=== PATIENT | female | born 1995 | race Caucasian/White ===

== ENCOUNTER 2019-12-26 15:31 | Inpatient (IN) | payer OTHER ==
[~2019-12-26] VITALS: Ht 167.6 cm; Wt 83.9 kg
[2019-12-26] MEDS ORDERED: KYLE19.5 IU (15:43)
[2019-12-26] MEDS ORDERED: ZOLO25TA PO (15:44)
[2019-12-26] MEDS ORDERED: CHARCOAL ACTIVATED LIQUID 25 GM/120 ML BTL PO ONE (15:45)
[2019-12-26] MEDS ORDERED: NS 1,000 ML IV ONE (16:00)
[2019-12-26 16:15] LABS: BASO % 0.3 % (0.0-1.0); EOS # 0.1 10^3/uL (0.0-0.5); HEMATOCRIT 42.9 % (36.0-47.0); LYMPH # 2.3 10^3/uL (1.5-5.0); LYMPH % 29.9 % (24.0-44.0); MEAN CORPUSCULAR HEMOGLOBIN 26.5 pg (27.0-33.0); MEAN CORPUSCULAR HGB CONC 32.6 g/dl (32.0-36.5); MEAN CORPUSCULAR VOLUME 81.3 fl (80.0-96.0); MONO # 0.5 10^3/uL (0.0-0.8); MONO % 6.6 % (0.0-5.0); NEUTROPHILS # 4.8 10^3/uL (1.5-8.5); NEUTROPHILS % 62.1 % (36.0-66.0); PLATELET COUNT, AUTOMATED 312 10^3/uL (150-450); RED BLOOD COUNT 5.28 10^6/uL (4.00-5.40); WHITE BLOOD COUNT 7.8 10^3/uL (4.0-10.0)
[2019-12-26 16:28] LABS: HCG, SERUM QUALITATIVE NEGATIVE (NEGATIVE)
[2019-12-26 16:38] LABS: ACETAMINOPHEN LEVEL < 2.0 UG/ML (10.0-30.0); ALT/SGPT 40 U/L (12-78); BILIRUBIN,DIRECT 0.1 MG/DL (0.0-0.2); BILIRUBIN,TOTAL 0.4 MG/DL (0.2-1.0); BLOOD UREA NITROGEN 11 MG/DL (7-18); CALCIUM LEVEL 9.5 MG/DL (8.5-10.1); CARBON DIOXIDE LEVEL 25 MEQ/L (21-32); CHLORIDE LEVEL 107 MEQ/L (98-107); CPK CREATINE PHOSPHOKINASE 96 U/L (26-192); CREATININE FOR GFR 0.73 MG/DL (0.55-1.30); ETHYL ALCOHOL (ETHANOL) < 0.003 % (0.000-0.010); GLOMERULAR FILTRATION RATE > 60.0 (>60); GLUCOSE, FASTING 93 MG/DL (70-100); POTASSIUM SERUM 4.1 MEQ/L (3.5-5.1); SALICYLATE LEVEL < 1.7 MG/DL (5.0-30.0); SODIUM LEVEL 138 MEQ/L (136-145); TOTAL PROTEIN 7.3 GM/DL (6.4-8.2)
[2019-12-26 17:01] LABS: AMPHETAMINES LEVEL URINE NEGATIVE (NEGATIVE); BARBITURATES URINE NEGATIVE (NEGATIVE); BENZODIAZEPINES URINE NEGATIVE (NEGATIVE); CANNABINOIDS URINE NEGATIVE (NEGATIVE); COCAINE METABOLITE URINE NEGATIVE (NEGATIVE); METHADONE URINE NEGATIVE (NEGATIVE); OPIATES URINE NEGATIVE (NEGATIVE); PHENCYCLIDINE URINE NEGATIVE (NEGATIVE)
[2019-12-26] MEDS ORDERED: ONDANSETRON 4 MG ORAL DISINTEGRATING TAB (Q0162 PER 1MG) PO ONE (21:45)
[2019-12-27] MEDS ORDERED: MOM 30ML SUSPENSION UDC PO PRN (00:30)
[2019-12-27] MEDS ORDERED: ACETAMINOPHEN TAB 650MG DOSE (2X325MG) PO PRN (00:30)
[2019-12-27] MEDS ORDERED: traZODone 50 MG TAB PO PRN (00:30)
[2019-12-27] MEDS ORDERED: MAALOX 30 ML SUSP *UDC PO PRN (00:30)
[2019-12-27 14:00] VITALS: BP 123/75
[2019-12-28 06:55] VITALS: BP 101/59
--- NOTE | 2019-12-28 11:32 | MHHPEPDOC ---
General Date Of Admission: Dec 27, 2019 Legal Status: 9.39 Chief Complaint "I took a lot of pills." History of Present Illness HISTORY OF THE PRESENT ILLNESS: Patient is a 24 -year-old , female, with a history of depression and no inpatient admissions who was admitted after she attempted suicide by taking 25 pills of zoloft 25mg. Per the ED pt stated that she has attempted suicide multiple times in the past but that her parents never brought her to the hospital until now.Pt endorsed depression, anxiety, hopelessness/helplessness, erratic energy levels. Pt stated she was recently started on zoloft for depression by her PCO 12/21/19 in the ED. Psychiatric Review of Systems Depression (2 or more weeks): depressed mood, suicidal thoughts Marli (4 or more days of): denies Psychosis: denies PTSD: denies Anxiety: situational anxiety, stressor related anxiety Anxiety/ 6 months or more of: difficulty concentrating, irritability, personality cluster A,BC (b) Past Psychiatric History Previous Psychiatric Diagnosis: depression Previous Psychiatric Admissions: denies. Suicide Attempts: multiple SA per pt that she never sought help for Psychiatric Follow-up: PCP Psychiatric medications: zoloft 25mg daily start 12/21/19 by PCP Past Medical History Medical Problems healthy adult Head Injury: No Seizures: No Hospitalizations: No Surgeries: No Family Medical/Psychiatric HX Medical Problems denies Psychiatric Disorders: No Addiction: No Suicide Attemps/Completions: No Addiction History denies Social History Childhood: Born and raised in [place] in a 2 parent home with an older sister and younger brother. Good childhood. 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 supported by in the [employer] Social Support: , best friend in [place] Legal: denies Marital: , no kids Mental Status Examination General Appearance: well groomed, appears stated age, hospital scubs/clothing Build: average Demeanor: average Eye Contact: average Activity: average Behavior: cooperative Speech: clear, spontaneous, normal volume, reg/rate,rhythm,volume Mood: euthymic, anxious Mood "ok" Affect: full, appropriate, congruent, anxious Thought Process: logical/linear, intact Thought Content (Delusions): none reported, denies SI, HI, AVH Thought Content (Other): none reported, appropriate Thought Content (Aggressive): none reported Perception (Hallucinations): none reported Perception (Other): none reported Cognition (Impairment of): none reported Cognition(Intelligence Est.): average Oriented: Awake, Alert, Oriented times three Insight: fair Judgment: Fair Psychosis: Denies Diagnoses Depression Unspecified R/O adjustment d/o depression and anxiety R/O major depressive d/o A-FIB/CHADSVASC A-FIB History Current/History of A-Fib/PAF?: No Assessment Pt seen and states she overdosed on her zoloft to kill herself due to feeling like "life is weak and there are too many bad things that happen." States she regrets her overdosed b/c she did appreciate all the love and support she has from her family until now. Also states she didn't realize yet all the things she can do and wants to do. States that she was started on zoloft recently for depression and that her had noticed a positive change in her mood and energy but that she hadn't felt it yet. States she was tolerating it well when she first took. Pt denies she will ever OD again as learned a lesson from it and is agreeable to restarting zoloft for mood as it appears to have been beneficial when she first took it. She is attending groups and finding them helpful to learn coping skills. Denies SI/HI, hallucinations, delusions. Feels safe here. Initial Treatment Plan 1. Patient was admitted on a 9.39 status. 2. Complete history was obtained. 3. With patients permission, family will be contacted and database will be expanded. 4. Patients medication regimen will be reviewed and changed accordingly. 5. Patient will be provided with protected environment. 6. Patient will be treated with individual, group, and milieu therapies. 7. Patient will receive supportive psych-education. 8. Discharge planning will commence immediately. 9. Outpatient follow-up treatment will be strongly recommended. 10. The initial treatment plan will focus initially on: * Depression. * Risk for suicide. 11. zoloft 25mg daily ESTIMATED LENGTH OF STAY: 3-5 DAYS. TIME SPENT COUNSELING AND COORDINATING INITIAL CARE: 60 minutes. Vital Signs Vital Signs Date Time Temp Pulse Resp B/P (MAP) Pulse Ox O2 Delivery O2 Flow Rate FiO2 12/28/19 06:55 98.8 76 16 101/59 (73) 12/27/19 14:00 98 Room Air Medications Scheduled Sertraline Hcl (Zoloft) 25 Mg Tablet, 25 MG PO DAILY, (Reported) Miscellaneous Medications Levonorgestrel (Kyleena) 1 Each Iud, 19.5 MG IU, (Reported) Allergies Coded Allergies: No Known Drug Allergies (Verified Allergy, Unknown, 12/26/19) FIDELIA LONGO DO Dec 28, 2019 10:57 am
[2019-12-28] MEDS ORDERED: SERTRALINE HCL 25 MG TABLET PO ONE (12:00)
[2019-12-28 16:50] VITALS: BP 125/68
[2019-12-29 06:19] VITALS: BP 113/57
[2019-12-29] MEDS: SERTRALINE HCL 25 MG TABLET PO SCH (08:26)
[2019-12-29 16:14] VITALS: BP 126/70
--- NOTE | 2019-12-29 20:01 | MHIPNPDOC ---
[facility] Progress Note Progress Note DATE OF SERVICE: 12/29/19 HISTORY: As per Dr Campbell: "Patient is a 24 -year-old , female, with a history of depression and no inpatient admissions who was admitted after she at tempted suicide by taking 25 pills of zoloft 25mg. Per the ED pt stated that she has attempted suicide multiple times in the past but that her parents never brought her to the hospital until now.Pt endorsed depression, anxiety, hopelessness/helplessness, erratic energy levels. Pt stated she was recently started on zoloft for depression by her PCO 12/21/19 in the ED." VITAL SIGNS: See below. NEW TEST RESULTS: See below CURRENT MEDICATIONS: See below. MENTAL STATUS EXAMINATION: Patient is a 24-year old female, who is alert, cooperative, pleasant, with good hygiene and grooming. Speech: Is normal in r/t/v, spontaneous and fluent. Language skills are intact. Thought processes including: linear and coherent. Thought content: Denies SI/HI, denies thought delusions. Abstract reasoning, and computation: intact. Description of associations: Intact. Description of abnormal or psychotic thoughts: Denies thought delusions, denies TAV hallucinations, she is not responding to internal stimuli Judgment: Improving Insight: Improving. Orientation: x 3. Recent and remote memory: Intact. Attention span and concentration: Intact. Language: adequate. Fund of knowledge: full-good Mood: Euthymic. Affect: Congruent with mood DIAGNOSES: Depression Unspecified R/O adjustment d/o depression and anxiety R/O major depressive d/o ASSESSMENT: the patient is stable, she looks happy , her her family and a good friend came to visit. She is motivated, future orientated and in good spirits. MANAGEMENT PLAN: continue with current treatment plan TIME SPENT: 15 minutes. Vital Signs Vital Signs Date Time Temp Pulse Resp B/P (MAP) Pulse Ox O2 Delivery O2 Flow Rate FiO2 12/29/19 16:14 98.1 80 15 126/70 (88) 12/27/19 14:00 98 Room Air Current Medications Current Medications Medications (Trade) Dose Ordered Sig/Gabriel Route PRN Reason Start Time Stop Time Status Last Admin Dose Admin Acetaminophen (Tylenol Tab) 650 mg Q6HP PRN PO HEADACHE or DISCOMFORT 12/27/19 00:30 Al Hydrox/Mg Hydrox/Simethicone (Mylanta) 30 ml Q4HP PRN PO HEARTBURN/INDIGESTION 12/27/19 00:30 Home Med (Med Rec Complete!) ASDIRECTED XX 12/26/19 19:30 12/26/19 19:28 DC Magnesium Hydroxide (Milk Of Magnesia) 30 ml DAILYPRN PRN PO CONSTIPATION 12/27/19 00:30 Sertraline HCl (Zoloft) 25 mg DAILY PO 12/29/19 09:00 12/29/19 08:26 Trazodone HCl (Desyrel) 50 mg QHSP PRN PO INSOMNIA 12/27/19 00:30 Allergies Coded Allergies: No Known Drug Allergies (Verified Allergy, Unknown, 12/26/19) JC PRINCE MD Dec 29, 2019 19:00
[2019-12-30 06:39] VITALS: BP 128/66
[2019-12-30] MEDS: SERTRALINE HCL 25 MG TABLET PO SCH (08:18)
--- NOTE | 2019-12-30 10:29 | MHIPNPDOC ---
[facility] Progress Note Progress Note DATE OF SERVICE: 12/30/19 HISTORY: As per Dr Campbell: "Patient is a 24 -year-old , female, with a history of depression and no inpatient admissions who was admitted after she at tempted suicide by taking 25 pills of zoloft 25mg. Per the ED pt stated that she has attempted suicide multiple times in the past but that her parents never brought her to the hospital until now.Pt endorsed depression, anxiety, hopelessness/helplessness, erratic energy levels. Pt stated she was recently started on zoloft for depression by her PCO 12/21/19 in the ED." VITAL SIGNS: See below. NEW TEST RESULTS: See below CURRENT MEDICATIONS: See below. MENTAL STATUS EXAMINATION: Patient is a 24-year old female, who is alert, cooperative, pleasant, with good hygiene and grooming, pleasant and cooperative Speech: Is normal in r/t/v, spontaneous and fluent. Language skills are intact. Thought processes including: linear and coherent. Thought content: Denies SI/HI, denies thought delusions, reports anxious thoughts but she says "I've always been a very anxious person" Abstract reasoning, and computation: intact. Description of associations: Intact. Description of abnormal or psychotic thoughts: Denies thought delusions, denies TAV hallucinations, she is not responding to internal stimuli Judgment: Improving Insight: Improving. Orientation: x 3. Recent and remote memory: Intact. Attention span and concentration: Intact. Language: adequate. Fund of knowledge: adequate Mood: Euthymic. Affect: Congruent with mood DIAGNOSES: Depression Unspecified R/O adjustment d/o depression and anxiety R/O major depressive d/o ASSESSMENT: She's pleasant and cooperative, she is concerned about her mental health and wants to overcome her illness. She's goal directed and says she will get treatment, will get established with a Psychiatrist and a Therapist. She wants to continue her education, she wants to go to [facility], she sees happy at this time, she seems to be responding to medications MANAGEMENT PLAN: continue with current treatment plan TIME SPENT: 15 minutes. Vital Signs Vital Signs Date Time Temp Pulse Resp B/P (MAP) Pulse Ox O2 Delivery O2 Flow Rate FiO2 12/30/19 06:39 98.9 81 16 128/66 (86) 12/27/19 14:00 98 Room Air Current Medications Current Medications Medications (Trade) Dose Ordered Sig/Gabriel Route PRN Reason Start Time Stop Time Status Last Admin Dose Admin Acetaminophen (Tylenol Tab) 650 mg Q6HP PRN PO HEADACHE or DISCOMFORT 12/27/19 00:30 Al Hydrox/Mg Hydrox/Simethicone (Mylanta) 30 ml Q4HP PRN PO HEARTBURN/INDIGESTION 12/27/19 00:30 Home Med (Med Rec Complete!) ASDIRECTED XX 12/26/19 19:30 12/26/19 19:28 DC Magnesium Hydroxide (Milk Of Magnesia) 30 ml DAILYPRN PRN PO CONSTIPATION 12/27/19 00:30 Sertraline HCl (Zoloft) 25 mg DAILY PO 12/29/19 09:00 12/30/19 08:18 Trazodone HCl (Desyrel) 50 mg QHSP PRN PO INSOMNIA 12/27/19 00:30 Allergies Coded Allergies: No Known Drug Allergies (Verified Allergy, Unknown, 12/26/19) JC PRINCE MD Dec 30, 2019 10:29
[2019-12-30 16:00] VITALS: BP 142/77
[2019-12-31 07:04] VITALS: BP 125/57
[2019-12-31] MEDS: SERTRALINE HCL 25 MG TABLET PO SCH (08:16)
--- NOTE | 2019-12-31 09:59 | MHDSPDOC ---
[facility] Discharge Summary Discharge Summary DATE OF ADMISSION: Dec 27, 2019 at 00:27 DATE OF DISCHARGE: 12/31/19 Marek March Discharge Marek March Select Gender MRN: N/A Date of : MM/DD/YYYY Date of Service: 12/31/2019 Diagnoses Unspecified depressive disorder. History of Present Illness Patient is a 24 -year-old , female, with a history of depression and no inpatient admissions who was admitted after she attempted suicide by taking 25 pills of zoloft 25mg. Per the ED pt stated that she has attempted suicide multiple times in the past but that her parents never brought her to the hospital until now.Pt endorsed depression, anxiety, hopelessness/helplessness, erratic energy levels. Pt stated she was recently started on zoloft for depression by her PCO 12/21/19 in the ED. Consultants Involved Hospitalist/PCP screening Treatment and Progress On The Unit The patient was admitted to the inpatient mental health unit after observation. The patient was observed and restarted on her home Zoloft and did well. She was observed over the weekend where she made significant improvements. She has become more able to understand her situation. She did well with just 25 mg of her home Zoloft with no signs of serotonin syndrome. She attended groups well, was friendly and amenable and made good progress for all the unit. She had no behavioral problems and did well with supportive psychotherapy. Discharge Assessment 24-year-old woman with a history of depression and no previous major psychiatric involvement presents after a overdose of sertraline, she does well with mild supportive treatment and to restart of her home sertraline with no signs of serotonin storm. It appears the resolution being as quick as this is suggestive of adjustment rather than MDD, however further outpatient treatment will be needed to determine her prognosis and need for lifelong treatment. The patient at the time of discharge did not meet criteria for involuntary admission/extension due to having a normal mental status exam, fair insight into the situation, They are engaged in the discharge process, as well as being friendly and amenable in behavioral control and havent been engaging in any observed concerning behavior or ideation recently. They decline voluntary extension/admission at this time and must be discharged in good nikko, as Im unable to make a case for holding the patient against their will. They may have historical risk factors of admissions and other interactions with psychiatry however, those are not modifiable from a clinical perspective. The patient will need to be discharged in good nikko. Mental Status Examination General: Well dressed with good hygiene Speech: Spontaneous and fluid Thought processes: Linear and logical MSK: Smooth and coordinated gait, no signs of tremors or involuntary orofacial movements Thought content: Future orientated Abstract reasoning, and computation: Intact Description of associations: Intact Description of abnormal or psychotic thoughts: Denies any suicidal or homicidal ideation. Denies any auditory or visual hallucinations. Does not appear to be re sponding to internal stimuli. Does not appear to be endorsing any bizarre or paranoid ideation. Judgment: fair Insight: fair Orientation: Alert and orientated 3 Cognition: Grossly normal Recent and remote memory: Intact Attention span and concentration: Intact Fund of knowledge: Adequate Mood: "okay" Affect: Euthymic with a full range Follow Up The social work team worked during the predischarge meeting in order to evaluate for further issues of lethality address them fully before discharge. They worked on safety planning with the patient's family members in order to ensure that the patient will have a safe and effective discharge. Time Spent The amount of time spent in the coordination of care for this patient was approximately 60 minutes. Vital Signs/I&Os Vital Signs Date Time Temp Pulse Resp B/P (MAP) Pulse Ox O2 Delivery O2 Flow Rate FiO2 12/31/19 07:04 99.0 100 16 125/57 (79) Room Air 12/27/19 14:00 98 Medications Scheduled Sertraline Hcl (Zoloft) 25 Mg Tablet, 25 MG PO DAILY, (Reported) Miscellaneous Medications Levonorgestrel (Kyleena) 1 Each Iud, 19.5 MG IU, (Reported) Allergies Coded Allergies: No Known Drug Allergies (Verified Allergy, Unknown, 12/26/19) MAGDY MARTINEZ DO Dec 31, 2019 09:59
[2020-01-01] MEDS ORDERED: ZOLO25TA PO (12:46)
== END 2019-12-31 13:00 | disposition home or self-care (01) | DRG 881 ==
LOC: M ED 15:31 → EDBEDREQTM 18:44 → M ED INP 12-27 00:27 → M PSY 12-27 12:30
PROVIDERS: ADMIT Psychiatry & Neurology Addiction Medicine; ATTEND Psychiatry & Neurology Addiction Medicine
DX: F32.9 Major depressive disorder, single episode, unspecified (principal); T43.222A Poisoning by selective serotonin reuptake inhibitors, intentional self-harm, initial encounter; Z79.899 Other long term (current) drug therapy

== ENCOUNTER → 2020-05-01 | Outpatient (REF) | payer OTHER ==
[~2020-05-01] MED LIST: KYLE19.5 IU; ZOLO25TA PO
[2020-05-01 18:02] LABS: HCG, SERUM QUALITATIVE NEGATIVE (NEGATIVE)
== END ==
LOC: M LAB REF 16:17
PROVIDERS: ATTEND Registered Nurse
DX: N91.2 Amenorrhea, unspecified (principal)

== ENCOUNTER 2020-05-21 15:45 | Emergency (ER) | payer OTHER ==
[~2020-05-21] VITALS: Ht 167.6 cm; Wt 87.7 kg
[2020-05-21 16:25] LABS: BASO % 0.3 % (0.0-1.0); EOS # 0.2 10^3/uL (0.0-0.5); EOS % 2.7 % (0.0-3.0); HEMATOCRIT 41.7 % (36.0-47.0); HEMOGLOBIN 13.7 g/dl (12.0-15.5); LYMPH # 2.2 10^3/uL (1.5-5.0); LYMPH % 35.4 % (24.0-44.0); MEAN CORPUSCULAR HEMOGLOBIN 26.9 pg (27.0-33.0); MEAN CORPUSCULAR HGB CONC 32.9 g/dl (32.0-36.5); MEAN CORPUSCULAR VOLUME 81.8 fl (80.0-96.0); MONO # 0.5 10^3/uL (0.0-0.8); MONO % 8.4 % (0.0-5.0); NEUTROPHILS # 3.3 10^3/uL (1.5-8.5); NEUTROPHILS % 52.9 % (36.0-66.0); PLATELET COUNT, AUTOMATED 295 10^3/uL (150-450); WHITE BLOOD COUNT 6.3 10^3/uL (4.0-10.0)
[2020-05-21 16:55] LABS: BLOOD UREA NITROGEN 9 MG/DL (7-18); CALCIUM LEVEL 9.1 MG/DL (8.5-10.1); CARBON DIOXIDE LEVEL 26 MEQ/L (21-32); CHLORIDE LEVEL 109 MEQ/L (98-107); CREATININE FOR GFR 0.78 MG/DL (0.55-1.30); GLOMERULAR FILTRATION RATE > 60.0 (>60); GLUCOSE, FASTING 82 MG/DL (70-100); POTASSIUM SERUM 3.9 MEQ/L (3.5-5.1); SODIUM LEVEL 142 MEQ/L (136-145)
[2020-05-21 18:03] LABS: HCG, SERUM QUANTITATIVE 3 MIU/ML
--- NOTE | 2020-05-21 18:08 | REPVR ---
PROCEDURE INFORMATION: Exam: US Nonobstetric Pelvis; Complete Exam date and time: 05/21/2020 5:44 PM Age: 24 years old Clinical indication: Pelvic pain; Additional info: Rlq pain R/O ovarian cyst/torsion TECHNIQUE: Imaging protocol: Transabdominal pelvic nonobstetric ultrasound. Complete exam. Real time ultrasound with image documentation. COMPARISON: No relevant prior studies available. FINDINGS: Uterus/cervix: Uterus measures 7 x 2.5 x 4.6 cm. Endometrial echo complex measures 4 mm maximally. IUD located centrally within the endometrial canal. The there is a simple cystic structure in the upper vaginal canal measuring 2.4 x 2.2 x 1.9 cm. Right adnexa: Right ovary measures 2.5 x 1.9 x 1.5 cm. Volume 4 cc. Normal flow. Left adnexa: Left ovary measures 1.5 x 1 x 1.2 cm measuring 0.9 cc. Normal flow. Free fluid: None. Bladder: Normal. IMPRESSION: 1. The there is a simple cystic structure in the upper vaginal canal measuring 2.4 x 2.2 x 1.9 cm. Differential diagnosis includes malaria in cysts, Fern's duct cysts and inclusion cyst. 2. IUD located centrally within the uterus. Electronically signed by: Anjel Underwood On 05/21/2020 18:07:54 PM
[2020-05-21 19:23] VITALS: BP 111/65
--- NOTE | 2020-05-22 09:48 | ED PDOC ---
Post-Departure Follow-Up dr shirley and chaka tobin faxed formal report of pelvic us for fu Yobany Clark MD May 22, 2020 09:48
== END 2020-05-21 19:30 | disposition home or self-care (01) ==
LOC: M ED 15:45
DX: N89.8 Other specified noninflammatory disorders of vagina (principal); Z97.5 Presence of (intrauterine) contraceptive device

== ENCOUNTER → 2020-10-10 | Outpatient (CLI) | payer SELFPAY | LOC: M LABSMTC 12:16 | PROVIDERS: ATTEND Pediatrics | DX: Z20.828 Contact with and (suspected) exposure to other viral communicable diseases (principal) ==